=== PATIENT | male | born 1955 | race Caucasian/White ===

== ENCOUNTER 2024-03-26 13:35 | Outpatient (CLI) | payer MEDICARE | END 2024-03-26 13:36 | disposition home or self-care (01) | LOC: SCSRAD 13:35 | PROVIDERS: ATTEND Orthopaedic Surgery | DX: M54.50 Low back pain, unspecified (principal); M47.816 Spondylosis without myelopathy or radiculopathy, lumbar region; Z98.890 Other specified postprocedural states | CPT/HCPCS: 72100 ==

== ENCOUNTER 2024-05-21 12:25 | Outpatient (CLI) | payer MEDICARE | END 2024-05-21 12:26 | disposition home or self-care (01) | LOC: SCSRAD 12:25 | PROVIDERS: ATTEND Orthopaedic Surgery | DX: M54.50 Low back pain, unspecified (principal); M47.816 Spondylosis without myelopathy or radiculopathy, lumbar region; Z98.1 Arthrodesis status | CPT/HCPCS: 72100 ==